=== PATIENT | male | born 1965 | race Two or more races ===

== ENCOUNTER → 2020-03-10 | Outpatient (CLI) | payer OTHER ==
[2020-03-10 09:34] LABS: Basophils # (auto) 0 10 ^3/uL (0-0.2); Basophils % (auto) 0.7 % (0.0-2.0); Eosinophils # (auto) 0.2 10 ^3/uL (0-0.8); Hematocrit 40.6 % (41.0-53.0); Hemoglobin 14.8 g/dL (13.5-17.5); Lymphocytes # (auto) 1.5 10 ^3/uL (0.4-5.4); Lymphocytes % (auto) 29.5 % (10.0-50.0); Mean Corpuscular Hemoglobin 33.1 pg (28.0-32.0); Mean Corpuscular Hgb Conc. 36.4 g/dL (32.0-36.0); Monocytes # (auto) 0.3 10 ^3/uL (0-1.3); Monocytes % (auto) 5.8 % (0.0-12.0); Nucleated Red Blood Cells % 0.1 %; Platelet Count (auto) 236 10^3/uL (140-450); Red Blood Cells 4.46 10^6/uL (4.5-5.90); Red Cell Distribution Width 13.8 % (11.8-14.3); White Blood Cell 4.9 10^3/uL (4.4-10.8)
[2020-03-10 09:37] LABS: Urine Bacteria NONE SEEN /hpf (None Seen); Urine Blood Negative /uL (Negative); Urine Specific Gravity 1.013 (1.001-1.035); Urine WBC <1 /hpf (0 - 3)
[2020-03-10 09:58] LABS: Albumin 4.2 g/dL (3.4-5.0); Anion Gap 9 (5-15); Carbon Dioxide 22 mmol/L (21-32); Chloride 101 mmol/L (98-107); Glucose 245 mg/dL (74-106); Potassium 4.1 mmol/L (3.5-5.1); Sodium 132 mmol/L (136-145)
[2020-03-10 10:07] LABS: Free T4 (Free Thyroxine) 0.97 ng/dL (0.89-1.76); Prostate Specific Antigen 0.16 ng/mL (0.0-4.0)
[2020-03-10 10:08] LABS: Alkaline Phosphatase 67 U/L (45-117); Bilirubin, Total 0.9 mg/dL (0.2-1.0); GFR African American 122 mL/min; GFR Non-African American 100 mL/min; HDL Cholesterol 29 mg/dL (40-59); Triglycerides 3221 mg/dL (< 150)
[2020-03-10 11:32] LABS: BUN/Creatinine Ratio 10.7; Blood Urea Nitrogen 9 mg/dL (7-18)
[2020-03-10 11:33] LABS: Alanine Aminotransferase 24 U/L (16-61); Aspartate Aminotransferase 20 U/L (15-37); Total Protein 5.5 g/dL (6.4-8.2)
[2020-03-10 12:16] LABS: Cholesterol 429 mg/dL (< 200)
== END | disposition home or self-care (01) ==
LOC: LAB 09:15
PROVIDERS: ATTEND Internal Medicine
DX: E11.9 Type 2 diabetes mellitus without complications (principal); I10 Essential (primary) hypertension; R35.1 Nocturia; N52.9 Male erectile dysfunction, unspecified; E78.5 Hyperlipidemia, unspecified
CPT/HCPCS: 36415; 80053; 80061; 81001; 82043; 82607; 83036; 84153; 84403; 84439; 84443; 85025; 85652

== ENCOUNTER → 2020-04-12 | Outpatient (CLI) | payer OTHER ==
[2020-04-12 09:32] LABS: Cholesterol 233 mg/dL (< 200); HDL Cholesterol 29 mg/dL (40-59); Triglycerides 1792 mg/dL (< 150)
== END | disposition home or self-care (01) ==
LOC: LAB 08:23
PROVIDERS: ATTEND Internal Medicine
DX: E78.1 Pure hyperglyceridemia (principal)
CPT/HCPCS: 36415; 80061

== ENCOUNTER → 2022-11-05 | Outpatient (CLI) | payer OTHER ==
[2022-11-05 10:47] LABS: Calcium 8.7 mg/dL (8.5-10.1); Chloride 107 mmol/L (98-107); Potassium 4.3 mmol/L (3.5-5.1); Sodium 134 mmol/L (136-145)
[2022-11-05 10:54] LABS: Alanine Aminotransferase 24 U/L (16-61); Albumin 4.2 g/dL (3.4-5.0); Alkaline Phosphatase 35 U/L (45-117); Anion Gap 4 (5-15); Aspartate Aminotransferase 11 U/L (15-37); BUN/Creatinine Ratio 17.5 (10.0-20.0); Bilirubin, Total 0.6 mg/dL (0.2-1.0); Blood Urea Nitrogen 20 mg/dL (7-18); Carbon Dioxide 23 mmol/L (21-32); Cholesterol 140 mg/dL (< 200); GFR African American 85 mL/min; GFR Non-African American 70 mL/min; Glucose 137 mg/dL (74-106); HDL Cholesterol 29 mg/dL (40-59); Total Protein 7.1 g/dL (6.4-8.2); Triglycerides 482 mg/dL (< 150)
== END | disposition home or self-care (01) ==
LOC: LAB 09:22
PROVIDERS: ATTEND Internal Medicine
DX: E11.9 Type 2 diabetes mellitus without complications (principal); E78.5 Hyperlipidemia, unspecified
CPT/HCPCS: 36415; 80053; 80061; 83036

== ENCOUNTER → 2023-05-09 | Outpatient (CLI) | payer OTHER ==
[~2023-05-09] VITALS: Ht 177.8 cm; Wt 103.0 kg
[~2023-05-09] MED LIST: ADENOSINE 86 MG in GIVE UN-DILUTED 0 ML IV ONE; ASPI1TAB19 PO; CLOP75TA28 PO; EMPA1TAB3 PO; ERGO2000 PO; FENO160T PO; GLIP10TA9 PO; LISI20TA56 PO; METF-929 PO; ROSU10TA16 PO
== END | disposition home or self-care (01) ==
LOC: XYW 08:29
PROVIDERS: ATTEND Student in an Organized Health Care Education/Training Program
DX: I25.9 Chronic ischemic heart disease, unspecified (principal); I11.9 Hypertensive heart disease without heart failure; I25.10 Atherosclerotic heart disease of native coronary artery without angina pectoris; E78.5 Hyperlipidemia, unspecified; F10.10 Alcohol abuse, uncomplicated
CPT/HCPCS: 78452; 93017; A9500; J0153

== ENCOUNTER → 2023-05-19 | Outpatient (CLI) | payer OTHER ==
[~2023-05-19] MED LIST changes: -ADENOSINE 86 MG in GIVE UN-DILUTED 0 ML IV ONE
== END | disposition home or self-care (01) ==
LOC: XYW 08:23
PROVIDERS: ATTEND Student in an Organized Health Care Education/Training Program
DX: I25.9 Chronic ischemic heart disease, unspecified (principal); I25.10 Atherosclerotic heart disease of native coronary artery without angina pectoris; I10 Essential (primary) hypertension; E78.1 Pure hyperglyceridemia; E78.5 Hyperlipidemia, unspecified; F10.10 Alcohol abuse, uncomplicated
CPT/HCPCS: 78472; A9560

== ENCOUNTER → 2023-07-10 | Outpatient (CLI) | payer OTHER ==
[2023-07-10 13:00] LABS: Alanine Aminotransferase 25 U/L (7-40); HDL Cholesterol 31 mg/dL (40-59); Triglycerides 769 mg/dL (< 150)
[2023-07-10 13:01] LABS: Aspartate Aminotransferase 19 U/L (13-40); Cholesterol 177 mg/dL (< 200)
== END | disposition home or self-care (01) ==
LOC: LAB 11:48
PROVIDERS: ATTEND Internal Medicine
DX: E11.9 Type 2 diabetes mellitus without complications (principal); E78.5 Hyperlipidemia, unspecified
CPT/HCPCS: 36415; 80061; 82306; 83036; 84450; 84460

== ENCOUNTER → 2023-09-02 | Outpatient (CLI) | payer OTHER | END | disposition home or self-care (01) | LOC: XYW 09:52 | PROVIDERS: ATTEND Student in an Organized Health Care Education/Training Program | DX: I25.5 Ischemic cardiomyopathy (principal); I08.0 Rheumatic disorders of both mitral and aortic valves | CPT/HCPCS: 93306 ==

== ENCOUNTER → 2023-12-18 | Outpatient (CLI) | payer OTHER | END | disposition home or self-care (01) | LOC: XYW 13:11 | PROVIDERS: ATTEND Student in an Organized Health Care Education/Training Program | DX: I25.9 Chronic ischemic heart disease, unspecified (principal) | CPT/HCPCS: 78472; A9560 ==

== ENCOUNTER → 2024-01-12 | Outpatient (CLI) | payer OTHER ==
[2024-01-12 12:00] LABS: Potassium 4.2 mmol/L (3.5-5.1)
[2024-01-12 12:05] LABS: Cholesterol 172 mg/dL (< 200)
[2024-01-12 12:06] LABS: Triglycerides 531 mg/dL (< 150)
[2024-01-12 12:08] LABS: HDL Cholesterol 32 mg/dL (40-59)
== END | disposition home or self-care (01) ==
LOC: LAB 11:06
PROVIDERS: ATTEND Internal Medicine
DX: E11.9 Type 2 diabetes mellitus without complications (principal); E78.5 Hyperlipidemia, unspecified; E55.9 Vitamin D deficiency, unspecified
CPT/HCPCS: 36415; 80061; 82306; 83036; 84132

== ENCOUNTER → 2024-03-25 | Outpatient (CLI) | payer OTHER ==
[2024-03-25 09:06] LABS: Urine Bacteria None Seen /hpf (None Seen)
[2024-03-25 09:19] LABS: Basophils # (auto) 0 10 ^3/uL (0-0.2); Basophils % (auto) 0.6 % (0.0-2.0); Eosinophils # (auto) 0.1 10 ^3/uL (0-0.8); Eosinophils % (auto) 2.3 % (0.0-7.0); Hematocrit 44.7 % (41.0-53.0); Hemoglobin 15.7 g/dL (13.5-17.5); Lymphocytes % (auto) 24.5 % (10.0-50.0); Mean Corpuscular Hemoglobin 32.2 pg (28.0-32.0); Mean Corpuscular Hgb Conc. 35.1 g/dL (32.0-36.0); Mean Corpuscular Volume 91.8 fL (80.0-100.0); Monocytes # (auto) 0.3 10 ^3/uL (0-1.3); Monocytes % (auto) 6.8 % (0.0-12.0); Neutrophils # (auto) 2.8 10 ^3/uL (1.6-8.6); Neutrophils % (auto) 65.8 % (37.0-80.0); Nucleated Red Blood Cells % 0.1 %; Platelet Count (auto) 205 10^3/uL (140-450); Red Blood Cells 4.86 10^6/uL (4.5-5.90); Red Cell Distribution Width 13.3 % (11.8-14.3); Urine Blood Negative /uL (Negative); Urine Clarity Clear (Clear); Urine Color Light-Yellow (Yellow); Urine Protein, UAD Negative (Negative); Urine Specific Gravity 1.038 (1.001-1.035); Urine Urobilinogen Normal (Negative); Urine WBC <1 /hpf (0 - 3); White Blood Cell 4.2 10^3/uL (4.4-10.8)
[2024-03-25 09:49] LABS: Creatinine, Urine 77.87 mg/dL (30.0-125.0)
[2024-03-25 09:53] LABS: Micro Albumin < 3.0 mg/L (<30.0)
[2024-03-25 09:54] LABS: Erythrocyte Sedimentation Rate 9 mm/hr (0-20)
[2024-03-25 09:56] LABS: Alanine Aminotransferase 17 U/L (7-40); Albumin 4.8 g/dL (3.2-4.8); Alkaline Phosphatase 51 U/L (46-116); Anion Gap 10 (5-15); Aspartate Aminotransferase 11 U/L (13-40); BUN/Creatinine Ratio 18.6 (10.0-20.0); Blood Urea Nitrogen 19 mg/dL (9-23); Calcium 9.8 mg/dL (8.7-10.4); Carbon Dioxide 21 mmol/L (20-31); Chloride 107 mmol/L (98-107); Potassium 4.4 mmol/L (3.5-5.1); Sodium 138 mmol/L (136-145); Triglycerides 692 mg/dL (< 150)
[2024-03-25 09:57] LABS: Bilirubin, Total 0.9 mg/dL (0.2-1.0); Cholesterol 192 mg/dL (< 200); HDL Cholesterol 35 mg/dL (40-59); Total Protein 7.3 g/dL (5.7-8.2)
[2024-03-25 09:58] LABS: Glucose 148 mg/dL (74-106)
[2024-03-25 11:36] LABS: Prostate Specific Antigen 0.23 ng/mL (0.0-4.0)
[2024-03-25 11:41] LABS: Free T4 (Free Thyroxine) 1.18 ng/dL (0.89-1.76)
== END | disposition home or self-care (01) ==
LOC: LAB 08:51
PROVIDERS: ATTEND Internal Medicine
DX: E11.9 Type 2 diabetes mellitus without complications (principal); I10 Essential (primary) hypertension
CPT/HCPCS: 36415; 80053; 80061; 81001; 82043; 82570; 82607; 83036; 84153; 84439; 84443; 85025; 85652

== ENCOUNTER → 2024-06-21 | Outpatient (CLI) | payer OTHER ==
[~2024-06-21] VITALS: Ht 177.8 cm; Wt 90.7 kg
[2024-06-21] MEDS: REGADENOSON 0.4 MG/5 ML SYRG IV ONE ×2 (10:09)
--- NOTE | 2024-06-21 11:47 | DVHSR ---
APPROVED REPORT Exam: Nuclear Stress Test BMI: 0 Stress Test Details HR Max Heart Rate (APMHR): 160 bpm Target HR (85% APMHR): 136 bpm BP ECG Stress ECG Conclusion Review of the myocardial perfusion images during stress demonstrated a large area of severe intensity defect in the septum and also anteroseptal wall that is mostly reversible based on review of the res ting images except for the very apical part. Otherwise, there is homogeneous radiotracer uptake thro ughout the rest of the left ventricular myocardium. Left ventricular systolic function is mildly dec reased and is estimated at 50%. Left ventricular volumes are increased. No gated studies are availa ble to assess for wall wall motion. Impressions: Abnormal and high-risk nuclear myocardial perfusion scan suggestive of large area of ischemia in the LAD territory. Mildly decreased left ventricular systolic function with ejection fraction estimated at 50%. NM EXAM: Myocardial Perfusion REST/STRESS Imaging Protocol: Rest Tc-99m/Stress Tc-99m 1 day Resting Data Rest SPECT myocardial perfusion imaging was performed in supine position 60 minutes following the int ravenous injection of 10.2 mCi of Tc-99m Sestamibi. Time of rest injection: 0855 Time of rest imagin Administration Route: IV Administration Site: Left Arm Pharmacologic Stress Pharmacologic stress test was performed by injecting Regadenoson 0.4 mg IV push followed by the intra venous injection of 30.5 mCi of Tc-99m Sestamibi. Time of stress injection: 1009 Time of stress imagin Administration Route: IV Administration Site: Left Arm Gated Stress SPECT was performed 60 minutes after stress injection. The images were gated to evaluate regional wall motion and calculate left ventricular ejection fracti on. Stress only was performed in the Supine position. Nuclear Conclusion ECG Findings: equivocal Clinical Findings: negative for ischemia Nuclear Findings: positive for ischemia Exercise Capacity: not assessed Left Ventricular Function: abnormal Risk Study: high Review of the myocardial perfusion images during stress demonstrated a large area of severe intensity defect in the septum and also anteroseptal wall that is mostly reversible based on review of the res ting images except for the very apical part. Otherwise, there is homogeneous radiotracer uptake thro ughout the rest of the left ventricular myocardium. Left ventricular systolic function is mildly dec reased and is estimated at 50%. Left ventricular volumes are increased. No gated studies are availa ble to assess for wall wall motion. Impressions: Abnormal and high-risk nuclear myocardial perfusion scan suggestive of large area of ischemia in the LAD territory. Mildly decreased left ventricular systolic function with ejection fraction estimated at 50%.
== END | disposition home or self-care (01) ==
LOC: XYW 08:09
PROVIDERS: ATTEND Student in an Organized Health Care Education/Training Program
DX: Z01.810 Encounter for preprocedural cardiovascular examination (principal); I11.0 Hypertensive heart disease with heart failure; I50.20 Unspecified systolic (congestive) heart failure; I25.9 Chronic ischemic heart disease, unspecified; I25.10 Atherosclerotic heart disease of native coronary artery without angina pectoris
CPT/HCPCS: 78452; 93017; A9500; J2785

== ENCOUNTER → 2024-07-19 | Outpatient (CLI) | payer OTHER ==
[2024-07-19 08:30] LABS: Alanine Aminotransferase 17 U/L (7-40)
[2024-07-19 08:32] LABS: Aspartate Aminotransferase 10 U/L (13-40); Cholesterol 203 mg/dL (< 200); HDL Cholesterol 29 mg/dL (40-59); Triglycerides 909 mg/dL (< 150)
[2024-07-19 08:46] LABS: Basophils # (auto) 0 10 ^3/uL (0-0.2); Basophils % (auto) 0.6 % (0.0-2.0); Eosinophils # (auto) 0.2 10 ^3/uL (0-0.8); Eosinophils % (auto) 3.2 % (0.0-7.0); Hematocrit 43.2 % (41.0-53.0); Hemoglobin 14.7 g/dL (13.5-17.5); Mean Corpuscular Hemoglobin 31.5 pg (28.0-32.0); Mean Corpuscular Hgb Conc. 34.1 g/dL (32.0-36.0); Mean Corpuscular Volume 92.4 fL (80.0-100.0); Monocytes # (auto) 0.4 10 ^3/uL (0-1.3); Monocytes % (auto) 6.9 % (0.0-12.0); Neutrophils # (auto) 3.7 10 ^3/uL (1.6-8.6); Neutrophils % (auto) 70.3 % (37.0-80.0); Platelet Count (auto) 203 10^3/uL (140-450); Red Blood Cells 4.68 10^6/uL (4.5-5.90); Red Cell Distribution Width 13.2 % (11.8-14.3); White Blood Cell 5.2 10^3/uL (4.4-10.8)
== END | disposition home or self-care (01) ==
LOC: LAB 07:51
PROVIDERS: ATTEND Internal Medicine
DX: E11.9 Type 2 diabetes mellitus without complications (principal); E78.5 Hyperlipidemia, unspecified; D70.2 Other drug-induced agranulocytosis
CPT/HCPCS: 36415; 80061; 83036; 84450; 84460; 85025

== ENCOUNTER 2024-07-28 07:49 | Day surgery (SDC) | payer OTHER ==
[2024-07-23 16:06] LABS: Basophils # (auto) 0 10 ^3/uL (0-0.2); Basophils % (auto) 0.5 % (0.0-2.0); Eosinophils # (auto) 0.1 10 ^3/uL (0-0.8); Eosinophils % (auto) 1.6 % (0.0-7.0); Hematocrit 40.7 % (41.0-53.0); Hemoglobin 14.3 g/dL (13.5-17.5); Lymphocytes # (auto) 1.3 10 ^3/uL (0.4-5.4); Lymphocytes % (auto) 19.8 % (10.0-50.0); Mean Corpuscular Hemoglobin 32.1 pg (28.0-32.0); Mean Corpuscular Hgb Conc. 35.1 g/dL (32.0-36.0); Mean Corpuscular Volume 91.4 fL (80.0-100.0); Monocytes # (auto) 0.5 10 ^3/uL (0-1.3); Monocytes % (auto) 8.2 % (0.0-12.0); Neutrophils # (auto) 4.6 10 ^3/uL (1.6-8.6); Neutrophils % (auto) 69.9 % (37.0-80.0); Nucleated Red Blood Cells % 0.1 %; Platelet Count (auto) 200 10^3/uL (140-450); Red Blood Cells 4.45 10^6/uL (4.5-5.90); Red Cell Distribution Width 13.3 % (11.8-14.3); White Blood Cell 6.6 10^3/uL (4.4-10.8)
[2024-07-23 16:19] LABS: Alanine Aminotransferase 18 U/L (7-40); Alkaline Phosphatase 46 U/L (46-116); Anion Gap 11 (5-15); Aspartate Aminotransferase 17 U/L (13-40); BUN/Creatinine Ratio 19.2 (10.0-20.0); Blood Urea Nitrogen 19 mg/dL (9-23); Calcium 10.1 mg/dL (8.7-10.4); Carbon Dioxide 23 mmol/L (20-31); Chloride 102 mmol/L (98-107); Glucose 125 mg/dL (74-106); Partial Thromboplastin Time 27.9 SEC (24.5-34.5); Potassium 4.3 mmol/L (3.5-5.1); Prothrombin Time 10.6 sec (9.3-11.8); Sodium 136 mmol/L (136-145)
[2024-07-23 16:20] LABS: Albumin 5.1 g/dL (3.2-4.8); Total Protein 7.2 g/dL (5.7-8.2)
[2024-07-23 16:21] LABS: Bilirubin, Total 1.2 mg/dL (0.2-1.0)
[~2024-07-28] VITALS: Ht 175.3 cm; Wt 94.3 kg
[~2024-07-28 07:49] MED LIST changes: -ERGO2000 PO; +FENO145T27 PO; -GLIP10TA9 PO; +IODIXANOL 320MG/ML 100ML BTL IV ONE; +METF-370 PO; -METF-929 PO; +METO25TA93 PO; +PANT40T PO; -ROSU10TA16 PO; +ROSU20TA14 PO; +SACU1TAB PO
[2024-07-28] MEDS ORDERED: fentaNYL CITRATE 100 MCG/2 ML VL ONE (08:28)
[2024-07-28] MEDS ORDERED: MIDAZOLAM HCL 2MG/2ML 2ml VIAL (1mg/ml) ONE (08:29)
[2024-07-28] MEDS ORDERED: ANGIOMAX 250 MG VIAL IV ONE ×2 (08:34→09:43)
[2024-07-28] MEDS ORDERED: HEPARIN SODIUM (PORCINE) 5000 UNITS/ML 1ML VIAL ONE (08:35)
[2024-07-28] MEDS ORDERED: VERAPAMIL 2.5MG/ML INJ 2ML VIAL IV ONE (08:35)
[2024-07-28] MEDS ORDERED: SODIUM CHL 0.9% 50 ML ONE ×2 (08:35→09:43)
[2024-07-28] MEDS ORDERED: IODIXANOL 320MG/ML 100ML BTL IV ONE ×2 (08:36→09:43)
[2024-07-28] MEDS ORDERED: LIDOCAINE 2%HCL (LOCAL ANESTH.) INJ 20ML MDV ONE (08:36)
--- NOTE | 2024-07-28 12:14 | DVHOP2 ---
Operative Report - 2 Report Details Date: 07/28/24 Preop Diagnosis: CAD. Postop Diagnosis: Critical stenosis of the LAD and diagonal bifurcation. Successful stenting of the left anterior descending and diagonal artery Surgeon: Paul Esquivel MD Anesthesiologist: Conscious sedation Anesthesia: Mac, Local (Conscious sedation given by nurse. I personally order ed the administration of Versed and fentanyl. I monitored the patient throughout the entirety of the procedure.) Consent: The patient was informed of the risks and benefits of the procedure. These include but are not limited to complications of anesthesia, postoperative infection, incomplete relief of symptoms, recurrence of symptoms, damage to blood vessels, nerves and tendons, deep venous thrombosis, pulmonary embolism and possible need for repeat surgery in the future. Complications: No complications Estimated Blood Loss: 10 cc Findings: Critical stenosis of the left anterior descending and diagonal arteries Indications for Surgery: Abnormal stress test chest pain shortness of breath. Name of Procedure Performed Bilateral cine coronary angiography. Left ventriculography. PTCA and stenting of the left anterior descending coronary artery. PTCA and stenting of the diagonal artery Procedure Details Procedure Details: Prior local anesthesia with 2% lidocaine to the right radial artery and full informed consent obtained the patient was prepped and draped in usual fashion followed by placement of a six Lao sheath into the radial artery and a Wesly catheter for evaluation of both right and left coronary ostia and ventriculography. No complications angioplasty procedure as will be delineated below. Hemodynamics: Aortic blood pressure was 130/70. End-diastolic pressure was 12. There was no gradient across the aortic valve on pullback. Coronary anatomy: The right coronary artery is a large dominant vessel is normal in its proximal mid and distal segments. PDA and posterolateral branches are normal. Left main is large and normal. The left anterior descending is a medium caliber vessel it is on 99% subtotally occluded in its proximal to mid section. There is intracoronary collaterals to the diagonal and to the distal LAD faintly. There is what appears to be in stent restenosis/thrombosis. The circumflex is a large caliber vessel. It has no stenosis in its proximal mid section. The 1st marginal branch has a 50-60% stenosis. The circumflex proper as a 70-80% stenosis however it is a smaller vessel and ends in the distal AV groove. Ventriculography in the TYLER projection shows an overall estimated ejection fraction of 60% with anterior hypokinesis. Angioplasty was performed for which a 3.5 EBU guiding catheter was then placed i nto the ostium of the left main and a Guidezilla was placed subsequently into the proximal LAD. Edwar Specter wire was then placed into the diagonal artery. Given the occlusion and stenosis within the LAD we were unable to place the wire into the LAD for which we took a pro via nine and placed it into the LAD and placed a two five balloon to pre dilate across the area of stenosis and within the occluded stent. There was slight distal edge dissection. We then placed a two five noncompliant balloon and we were able to perform adequate aperture however there was notable collapse and restenosis of the stent within the LAD for which we placed a long two 5 x 22 at 18 atmospheres. We noticed that there was a significant narrowing of the LAD its midportion distal to the stenting. The artery at the origin of the distal anterior segment was of greater dimensions for which we then placed a long two five by 22 stent also at the midportion at the level of a small dissection previously caused by the pre dilatation with a 2-0 balloon. Nitroglycerin was instituted. There was notably improved flow. We noticed a proximal dissection in the diagonal artery for which we then placed a 225 by 22 into the proximal diagonal. Kissing balloon technique was used with a 2.5 mm x 18 mm stent balloon in the LAD and a 2.25 in the diagonal. Kissing balloon technique was performed with notably improved flow across left anterior descending coronary artery. Postdilatation of the stent at midportion of the proximal stent in LAD improved flow significantly. Impression: Successful PTCA and stenting and aperture of the left anterior descending coronary artery and diagonal artery with a kissing balloon technique. Normal left ventricular end-diastolic pressure at rest with normal ejection fra ction. Recommendations: Risk factor modification to continue. Condition Good Disposition Home Date of Service: Jul 28, 2024 Billing Provider: PAUL ESQUIVEL Sr., MD Cardiology Common Codes: 94386-LOHZVQD INP/OBS CARE (High) Cardiology Procedure Codes: 72637-HJBHWQ VESSEL W/I VASC FAM, 92999 -PTCA W/STENT PLACEMENT, 28479-DUVH ADD CORONARY BRANCH, 29302-MEBT HEART CATH W/INTRA INJ APUL ESQUIVEL Sr., MD Jul 28, 2024 12:13
== END 2024-07-28 14:00 | disposition home or self-care (01) ==
LOC: CATH 07:49
PROVIDERS: ATTEND Internal Medicine
DX: I25.10 Atherosclerotic heart disease of native coronary artery without angina pectoris (principal); R07.9 Chest pain, unspecified; R91.1 Solitary pulmonary nodule; R78.1 Finding of opiate drug in blood; I25.5 Ischemic cardiomyopathy; I10 Essential (primary) hypertension; E11.65 Type 2 diabetes mellitus with hyperglycemia; Z79.899 Other long term (current) drug therapy; Z79.84 Long term (current) use of oral hypoglycemic drugs; Z79.01 Long term (current) use of anticoagulants; Z79.82 Long term (current) use of aspirin; Z98.890 Other specified postprocedural states
CPT/HCPCS: 36415; 80053; 85025; 85610; 85730; 93458; C1725; C1769; C1874; C1887; C1894; C9600; C9601; J0583; J1644; J2250; J3010; Q9967; 99152; 99153

== ENCOUNTER → 2025-02-09 | Outpatient (CLI) | payer OTHER ==
[~2025-02-09] MED LIST changes: -IODIXANOL 320MG/ML 100ML BTL IV ONE
[2025-02-09 14:18] LABS: Alanine Aminotransferase 20 U/L (7-40); Anion Gap 13 (5-15); BUN/Creatinine Ratio 13.9 (10.0-20.0); Bilirubin, Direct 0.3 mg/dL (<0.3); Blood Urea Nitrogen 16 mg/dL (9-23); Calcium 9.8 mg/dL (8.7-10.4); Carbon Dioxide 23 mmol/L (20-31); Chloride 103 mmol/L (98-107); Potassium 4.2 mmol/L (3.5-5.1); Sodium 139 mmol/L (136-145); Total Protein 7.4 g/dL (5.7-8.2)
[2025-02-09 14:19] LABS: Albumin 4.9 g/dL (3.2-4.8); Alkaline Phosphatase 42 U/L (46-116); Bilirubin, Total 1.6 mg/dL (0.2-1.0); Glucose 131 mg/dL (74-106)
== END | disposition home or self-care (01) ==
LOC: LAB 13:07
PROVIDERS: ATTEND Internal Medicine
DX: I10 Essential (primary) hypertension (principal); I25.10 Atherosclerotic heart disease of native coronary artery without angina pectoris
CPT/HCPCS: 36415; 80053; 80076

== ENCOUNTER 2025-02-21 09:33 | Outpatient (CLI) | payer OTHER ==
[~2025-02-21] VITALS: Ht 177.8 cm; Wt 90.7 kg
[2025-02-21] MEDS: REGADENOSON 0.4 MG/5 ML SYRG IV ONE ×2 (11:03→11:11)
--- NOTE | 2025-02-21 13:16 | DVHSR ---
APPROVED REPORT Exam: Nuclear Stress Test BMI: 0 Stress Test Details HR Max Heart Rate (APMHR): 159.383431 bpm Target HR (85% APMHR): 135.387716 bpm BP ECG Stress ECG Conclusion anteroseptum reversible ischemia infero and inferoapical iscchemi and infarct lvef 43% ecg shows LAD and inferior st depressions 1/2 mm NM EXAM: Myocardial Perfusion REST/STRESS Imaging Protocol: Rest Tc-99m/Stress Tc-99m 1 day Resting Data Rest SPECT myocardial perfusion imaging was performed in supine position 60 minutes following the int ravenous injection of 11.2 mCi of Tc-99m Sestamibi. Time of rest injection: 0955 Time of rest imagin Administration Route: IV Administration Site: Right Hand Pharmacologic Stress Pharmacologic stress test was performed by injecting Regadenoson 0.4 mg IV push followed by the intra venous injection of 30.9 mCi of Tc-99m Sestamibi. Time of stress injection: 1115 Time of stress imagin Administration Route: IV Administration Site: Right Hand Gated Stress SPECT was performed 60 minutes after stress injection. The images were gated to evaluate regional wall motion and calculate left ventricular ejection fracti on. Nuclear Conclusion Nuclear Findings: positive for ischemia anteroseptum reversible ischemia infero and inferoapical iscchemi and infarct lvef 43% ecg shows LAD and inferior st depressions 1/2 mm
== END 2025-02-21 17:00 | disposition home or self-care (01) ==
LOC: XYW 09:33
PROVIDERS: ATTEND Internal Medicine
DX: I25.9 Chronic ischemic heart disease, unspecified (principal); I25.10 Atherosclerotic heart disease of native coronary artery without angina pectoris
CPT/HCPCS: 78452; 93017; A9500; J2785

== ENCOUNTER 2025-04-13 07:57 | Day surgery (SDC) | payer OTHER ==
[2025-04-11 11:10] LABS: Hematocrit 42.7 % (41.0-53.0); Hemoglobin 14.7 g/dL (13.5-17.5); Mean Corpuscular Hemoglobin 31.2 pg (28.0-32.0); Mean Corpuscular Volume 90.3 fL (80.0-100.0); Nucleated Red Blood Cells % 0.1 %
[2025-04-11 11:16] LABS: INR 1.02 (0.9-1.15); Partial Thromboplastin Time 27.7 SEC (24.5-34.5); Prothrombin Time 10.8 sec (9.3-11.8)
[2025-04-11 13:39] LABS: Alanine Aminotransferase 22 U/L (7-40); Alkaline Phosphatase 51 U/L (46-116); Calcium 9.5 mg/dL (8.7-10.4); Carbon Dioxide 25 mmol/L (20-31); Chloride 103 mmol/L (98-107)
[2025-04-11 13:40] LABS: Albumin 4.6 g/dL (3.2-4.8); Anion Gap 12 (5-15); BUN/Creatinine Ratio 12.4 (10.0-20.0); Bilirubin, Total 1.0 mg/dL (0.2-1.0); Blood Urea Nitrogen 13 mg/dL (9-23); Potassium 4.5 mmol/L (3.5-5.1); Sodium 140 mmol/L (136-145); Total Protein 7.1 g/dL (5.7-8.2)
[2025-04-11 13:44] LABS: Glucose 149 mg/dL (74-106)
[2025-04-13] VITALS (8 sets, daily range): BP systolic 108–120; BP diastolic 58–67; PULSE 50–59; RESP 14–18; TEMP 97.9; O2SAT 93–96
[~2025-04-13] VITALS: Ht 175.3 cm; Wt 93.9 kg
[~2025-04-13 07:57] MED LIST changes: +COLC1CAP3 PO; -FENO160T PO; -LISI20TA56 PO; +POM PO
[2025-04-13] MEDS ORDERED: IODIXANOL 320MG/ML 100ML BTL IV ONE ×3 (11:44→13:07)
[2025-04-13] MEDS ORDERED: VERAPAMIL 2.5MG/ML INJ 2ML VIAL IV ONE (11:54)
[2025-04-13] MEDS ORDERED: ANGIOMAX 250 MG VIAL IV ONE ×2 (11:54→12:41)
[2025-04-13] MEDS ORDERED: fentaNYL CITRATE 100 MCG/2 ML VL ONE (11:54)
[2025-04-13] MEDS ORDERED: MIDAZOLAM HCL 2MG/2ML 2ml VIAL (1mg/ml) ONE (11:54)
[2025-04-13] MEDS ORDERED: LIDOCAINE 2%HCL (LOCAL ANESTH.) INJ 20ML MDV ONE (11:55)
[2025-04-13] MEDS ORDERED: SODIUM CHL 0.9% 50 ML ONE ×2 (11:55→12:41)
[2025-04-13] MEDS ORDERED: HEPARIN SODIUM (PORCINE) 5000 UNITS/ML 1ML VIAL ONE (11:55)
[2025-04-13] MEDS ORDERED: ATROPINE SULF 1 MG/10ml SYR ONE (12:26)
--- NOTE | 2025-04-13 13:44 | DVHOP2 ---
Operative Report - 2 Report Details Date: 04/13/25 Preop Diagnosis: CAD Postop Diagnosis: CAD Surgeon: Paul Esquivel MD Anesthesiologist: Conscious sedation Anesthesia: Mac, Local Consent: The patient was informed of the risks and benefits of the procedure. These include but are not limited to complications of anesthesia, postoperative infection, incomplete relief of symptoms, recurrence of symptoms, damage to blood vessels, nerves and tendons, deep venous thrombosis, pulmonary embolism and possible need for repeat surgery in the future. Complications: No complications Findings: CAD Indications for Surgery: CAD Name of Procedure Performed Left heart catheterization bilateral cine coronary angiography. Left ventriculography. PTCA and stenting of the LAD and diagonal artery. Atherotomy LAD and diagonal artery. Procedure Details Procedure Details: Prior local anesthesia with 2% lidocaine to the right wrist and full informed consent obtained patient was prepped and draped in the usual fashion followed by placement of a six [place]raltarian sheath into the right radial artery through which six Gibraltarian Anjali catheters were used to cannulate both right and left coronary ostia and a six Gibraltarian pigtail catheter was used for ventriculography. A 3.5 EBU guide was then used to perform angioplasty as will be delineated below. Hemodynamics: Aortic blood pressure was 130/90 end-diastolic pressure was 12. There was no gradient across the aortic valve on pullback. Coronary anatomy: The RCA is a large vessel it is codominant. It is normal in its proximal mid and distal segments. The PDA and the posterolateral branches are normal. The left main is large and normal. Left anterior descending has diffuse disease in its proximal and midportion. It has a 99% subtotal occlusion of the proximal portion and a 95% stenosis of the level of the diagonal. The diagonal itself has a proximal 95% stenosis. This is significant in stent restenosis. There is faint filling of the distal LAD via intracoronary collaterals. The circumflex is large with two marginals free of significant disease. Ventriculography in the TYLER projection shows an EF of about 40%. Anterior hypokinesis. Coronary angioplasty was performed. A 3.5 EBU guide was placed. A Specter wire placed across the area of stenosis in the diagonal artery and a choice floppy was placed into the LAD. We dilated the LAD diagonal segment with a 2.5 AngioSculpt balloon. We then placed a 2-0 balloon into the LAD and dilated proximally as well as into the mid LAD into the 2nd stent in the mid to distal segment. There was also in stent restenosis at this level. We then took a 2.5 AngioSculpt and dilated the in stent portion of the LAD distal to the diagonal. We then placed a two 0 balloon by 15 mm in diameter and placed an into the distal stent and dilated to retrograde. There was some recoil dissections. We then noticed a proximal dissection of the left anterior descending coronary artery for which we took a 3-0 by [address] the from the LAD distal to the diagonal to the proximal segment that had been dissected and dilated to a proximally 13 atmospheres with excellent antegrade flow. We then pulled the wire from the diagonal and we placed it into the diagonal again and placed a two five balloon to pre dilate and placed a 2.5 x 12 mm stent at the ostium of this artery at the edge of the stent. This was T stent technique. There was excellent antegrade flow without thrombus formation under dissection. Impression successful PTCA stenting and atherotomy of the LAD diagonal segments. Decreased left ventricular ejection fraction. Elevated left ventricular end- diastolic pressure at rest. Recommendations: Dual antiplatelet therapy. Continue with risk factor modification. Condition Good Disposition Home Date of Service: Apr 13, 2025 Billing Provider: PAUL ESQUIVEL Sr., MD Cardiology Common Codes: 19223-[id number] INP/OBS CARE (High) Cardiology Procedure Codes: 95768 -PTCA W/STENT PLACEMENT, 15878-URKS ADD COR ONARY BRANCH, 67728-[facility] HEART CATH W/INTRA INJ (Atherotomy of the LAD and diagonal arteries) PAUL ESQUIVEL Sr., MD Apr 13, 2025 13:44
[2025-04-20 12:44] LABS: Chloride 103 mmol/L (98-107); Potassium 4.2 mmol/L (3.5-5.1); Sodium 138 mmol/L (136-145)
[2025-04-20 12:45] LABS: Anion Gap 12 (5-15); Carbon Dioxide 23 mmol/L (20-31)
[2025-04-20 12:46] LABS: Calcium 9.9 mg/dL (8.7-10.4)
[2025-04-20 12:50] LABS: BUN/Creatinine Ratio 18.8 (10.0-20.0); Blood Urea Nitrogen 21 mg/dL (9-23)
[2025-04-20 12:54] LABS: Glucose 234 mg/dL (74-106)
== END 2025-04-13 16:10 | disposition home or self-care (01) ==
LOC: CATH 07:57
PROVIDERS: ATTEND Internal Medicine
DX: I25.10 Atherosclerotic heart disease of native coronary artery without angina pectoris (principal); T82.855A Stenosis of coronary artery stent, initial encounter; R94.39 Abnormal result of other cardiovascular function study; I10 Essential (primary) hypertension; E78.5 Hyperlipidemia, unspecified; E11.65 Type 2 diabetes mellitus with hyperglycemia; E78.1 Pure hyperglyceridemia; Z79.82 Long term (current) use of aspirin; Z79.84 Long term (current) use of oral hypoglycemic drugs; Z79.899 Other long term (current) drug therapy; Z87.891 Personal history of nicotine dependence; Z82.3 Family history of stroke; Z82.49 Family history of ischemic heart disease and other diseases of the circulatory system; Z83.3 Family history of diabetes mellitus; Y71.8 Miscellaneous cardiovascular devices associated with adverse incidents, not elsewhere classified
CPT/HCPCS: 36415; 80053; 85025; 85610; 85730; 93458; C1725; C1769; C1874; C1887; C1894; C9600; C9601; J0583; J1644; J2250; J3010; J7030; Q9967; 80048; 99152; 99153